=== PATIENT | male | born 1985 | race Caucasian/White ===

== ENCOUNTER 2016-09-15 16:54 | Emergency (ER) | payer OTHER ==
--- NOTE | 2016-09-15 17:39 | REP ---
Clinical: Trauma. Technique: AP, lateral, bilateral oblique and sunrise views of the left knee. Comparison: 03/05/2008. Findings: Marked, advanced, tricompartmental osteoarthritic degenerative changes are appreciated. No acute fracture or dislocation. Soft tissue swelling and small suprapatellar effusion cannot be excluded. Impression: Advanced tricompartmental osteoarthritic degenerative changes. No acute fracture/dislocation. Signed by Nick Kendrick MD 09/15/2016 05:30 P
[2016-09-15] MEDS ORDERED: traMADol 50 MG TAB As Ordered ONE (19:29)
--- NOTE | 2016-09-15 19:37 | EDDOCDS ---
Physician Documentation [facility] Name: Jeffery Weber Age: 30 yrs Sex: Male : 1985 Arrival Date: 09/15/2016 Time: 16:54 Bed TR7 Private MD: NO PRIMARY PHYSICIAN, . Disposition: 09/15/16 19:18 Discharged to Home/Self Care. Impression: Pain in left knee. - Condition is Stable. - Discharge Instructions: Knee Bracing, Knee Pain. - Prescriptions for etodolac 200 mg Oral Capsule - take 1 capsule by ORAL route 3 times per day; 30 capsule. - Medication Reconciliation, Work Release Form - 3 day, Local Pharmacy Hours form. - Follow up: Orthopaedics, [facility]; When: Call to arrange an appointment; Reason: Further diagnostic work-up, Recheck today's complaints, Continuance of care. - Problem is new. - Symptoms are unchanged. Historical: - Allergies: no known allergies; - Home Meds: 1. none - PMHx: none; - PSHx: left arm surgery; left knee surgery X 4; - Social history: Smoking status: Patient uses tobacco products, current every day smoker. No barriers to communication noted, The patient speaks fluent Wallisian, Speaks appropriately for age. - Family history: Not pertinent. - : The pt / caregiver states he / she is not on anticoagulants. Home medication list is obtained from the patient. - Exposure Risk Screening:: None identified. Vital Signs: 09/15 16:57 BP 152 / 96; Pulse 77; Resp 18 S; Temp 97.8(O); Pulse Ox 98% on R/A; Weight 158.76 kg / gr2 350.01 lbs (R); Height 6 ft. 7 in. (200.66 cm) (R); Pain 8/10; 18:47 BP 142 / 82; Pulse 71; Resp 20; Temp 99.5(TE); Pulse Ox 99% on R/A; Pain 10/10; ar3 16:57 Body Mass Index 39.43 (158.76 kg, 200.66 cm) gr2 MDM: 17:06 Knee, Complete Ordered. EDMS 19:14 Financial registration complete. ks16 19:17 Knee Immobilizer ordered. btw 19:17 Crutches ordered. btw 19:17 traMADol 50mg- 4 pack 1 packets PO Per package directions; Dispense with patient. Take btw per package instructions. ordered. Administered Medications: 19:34 Drug: traMADol 50mg- 4 pack 1 packets [tramadol 50 mg tablet (1 tabs)] {Co-Signature: alicja evans (Ezio Kim RN).} Route: PO; Signatures: Dispatcher MedHost EDFaith Monahan RN RN srm Zecher, Calvin, RN RN cz Wolfenden, Brandon, PA PA btw Chantal Reagan, Reg Reg ks16 Ezio carpenter9 MTDD
--- NOTE | 2016-09-15 19:38 | EDDOCDS ---
Nurse's Notes [facility] Name: Jeffery Weber Age: 30 yrs Sex: Male : 1985 Arrival Date: 09/15/2016 Time: 16:54 Bed TR7 Private MD: NO PRIMARY PHYSICIAN, . Diagnosis: Pain in left knee Presentation: 09/15 17:02 Presenting complaint: Patient states: left knee injury after slipping on ice today. hx srm of 4- 5 surgeries to same knee. Adult Sepsis Screening: The patient does not have new or worsening altered mentation. Patient's respiratory rate is less than 22. Systolic blood pressure is greater than 100. Patient has a qSOFA score of 0- Negative Sepsis Screen. Suicide/Homicide risk assessment- the patient denies having any suicidal and/or homicidal ideations and does not present with any other emotional, behavioral or mental health complaints. Status: Patient is not a government services professional or dependent. Transition of care: patient was not received from another setting of care. 17:02 Acuity: ROSE MARY Level 4 srm 17:02 Method Of Arrival: Wheelchair srm Triage Assessment: 17:03 General: Appears uncomfortable, Behavior is appropriate for age, cooperative. Pain: srm Pain currently is 10 out of 10 on a pain scale. HIV screening NA for this visit Offered previously. Musculoskeletal: Reports left knee pain. Historical: - Allergies: no known allergies; - Home Meds: 1. none - PMHx: none; - PSHx: left arm surgery; left knee surgery X 4; - Social history: Smoking status: Patient uses tobacco products, current every day smoker. No barriers to communication noted, The patient speaks fluent Malay, Speaks appropriately for age. - Family history: Not pertinent. - : The pt / caregiver states he / she is not on anticoagulants. Home medication list is obtained from the patient. - Exposure Risk Screening:: None identified. Screenin:35 Screening information is obtained from the patient. Fall risk: No risks identified. cz Assistance ADL's: requires no assistance with activities of daily living. Abuse/DV Screen: The patient / caregiver reports he/she is: not in a situation that causes fear, pain or injury. Nutritional screening: No deficits noted. home support is adequate. Assessment: 19:35 General: pt states aggravation of knee discomfort. cz Vital Signs: 16:57 BP 152 / 96; Pulse 77; Resp 18 S; Temp 97.8(O); Pulse Ox 98% on R/A; Weight 158.76 kg gr2 (R); Height 6 ft. 7 in. (200.66 cm) (R); Pain 8/10; 18:47 BP 142 / 82; Pulse 71; Resp 20; Temp 99.5(TE); Pulse Ox 99% on R/A; Pain 10/10; ar3 16:57 Body Mass Index 39.43 (158.76 kg, 200.66 cm) gr2 Vitals: 16:57 Log In Time: September 15, 2016 at 16:57. gr2 ED Course: 16:56 Patient visited by Reynaldo Bliss. gr2 16:56 Patient moved to Waiting gr2 16:57 NO PRIMARY PHYSICIAN, . is Private Physician. gr2 16:59 Patient visited by Reynaldo Bliss. gr2 16:59 Patient moved to Pre RCE gr2 17:03 Triage Initiated srm 17:41 Knee, Complete Returned. EDMS 18:45 Annie Chester,RN is Primary Nurse. ar3 18:45 Sandy Iglesias,ELSY is Primary Nurse. ar3 18:45 Patient moved to Triage 1 ar3 18:48 Patient visited by Zoraida Larson PCA. ar3 18:57 Isreal Vargas PA is PHCP. btw 18:57 Ibrahima Ying MD is Attending Physician. btw 18:57 Patient visited by Isreal Vargas PA. btw 19:01 Primary Nurse role handed off by Sandy Iglesais,ELSY kr3 19:18 Orthopaedics, [facility] is Referral Physician. btw 19:27 Patient visited by Zoraida Larson PCA. ar3 19:27 Crutch training done. Knee immobilizer applied on left knee. ar3 19:33 Patient moved to TR7 ar3 19:35 The patient / caregiver is instructed regarding the plan of care and ED course. cz 19:35 No IV's were initiated during this patient's visit. No procedures done that require cz assistance. Administered Medications: 19:34 Drug: traMADol 50mg- 4 pack 1 packets [tramadol 50 mg tablet (1 tabs)] {Co-Signature: alicja mb9 (Ezio Kim RN).} Route: PO; Order Results: Radiology Order: Knee, Complete Test: Knee, Complete REASON FOR EXAMINATION: Trauma; Clinical: Trauma.; ; Technique: AP, lateral, bilateral oblique and sunrise views of the left knee.; ; Comparison: 03/05/2008.; ; Findings:; Marked, advanced, tricompartmental osteoarthritic degenerative changes are; appreciated. No acute fracture or dislocation. Soft tissue swelling and small; suprapatellar effusion cannot be excluded.; ; Impression:; Advanced tricompartmental osteoarthritic degenerative changes.; No acute fracture/dislocation.; ; ; Signed by; Nick Kendrick MD 09/15/2016 05:30 P; Outcome: 19:18 Discharge ordered by Provider. btw 19:35 Discharge Assessment: Patient awake, alert and oriented x 3. No cognitive and/or cz functional deficits noted. Patient verbalized understanding of disposition instructions. patient administered narcotics - no. The following High Risk Discharge criteria are identified: None. Condition: stable. Discharge instructions given to patient, Instructed on discharge instructions, follow up and referral plans. medication usage, Demonstrated understanding of instructions, medications, Pt was receptive of discharge instructions/ teaching. Prescriptions given X 1. No special radiology studies were completed. Property :Personal belongings accompany Pt. 19:37 Patient left the ED. cz Signatures: Dispatcher MedHost EDMS Faith Pepe, RN RN Remberto Fernandez RN RN cz Robie, Kathleen, RN RN neisha3 Zoraida Larson, AIR HAMMER OPERATOR AIR HAMMER OPERATOR ar3 Isreal Vargas PA PA btw Reynaldo Bliss gr2 Ezio Kim RN mb9 MTDD
--- NOTE | 2016-09-17 20:37 | EDDOCDS ---
Physician Documentation [facility] Name: Jeffery Weber Age: 30 yrs Sex: Male : 1985 Arrival Date: 09/15/2016 Time: 16:54 Bed TR7 Private MD: NO PRIMARY PHYSICIAN, . Disposition: 09/15/16 19:18 Discharged to Home/Self Care. Impression: Pain in left knee. - Condition is Stable. - Discharge Instructions: Knee Bracing, Knee Pain. - Prescriptions for etodolac 200 mg Oral Capsule - take 1 capsule by ORAL route 3 times per day; 30 capsule. - Medication Reconciliation, Work Release Form - 3 day, Local Pharmacy Hours form. - Follow up: Orthopaedics, [facility]; When: Call to arrange an appointment; Reason: Further diagnostic work-up, Recheck today's complaints, Continuance of care. - Problem is new. - Symptoms are unchanged. Historical: - Allergies: no known allergies; - Home Meds: 1. none - PMHx: none; - PSHx: left arm surgery; left knee surgery X 4; - Social history: Smoking status: Patient uses tobacco products, current every day smoker. No barriers to communication noted, The patient speaks fluent Bengali, Speaks appropriately for age. - Family history: Not pertinent. - : The pt / caregiver states he / she is not on anticoagulants. Home medication list is obtained from the patient. - Exposure Risk Screening:: None identified. Vital Signs: 09/15 16:57 BP 152 / 96; Pulse 77; Resp 18 S; Temp 97.8(O); Pulse Ox 98% on R/A; Weight 158.76 kg / gr2 350.01 lbs (R); Height 6 ft. 7 in. (200.66 cm) (R); Pain 8/10; 18:47 BP 142 / 82; Pulse 71; Resp 20; Temp 99.5(TE); Pulse Ox 99% on R/A; Pain 10/10; ar3 16:57 Body Mass Index 39.43 (158.76 kg, 200.66 cm) gr2 MDM: 17:06 Knee, Complete Ordered. EDMS 19:14 Financial registration complete. ks16 19:17 Knee Immobilizer ordered. btw 19:17 Crutches ordered. btw 19:17 traMADol 50mg- 4 pack 1 packets PO Per package directions; Dispense with patient. Take btw per package instructions. ordered. 20:55 [facility] Payment Agreement was scanned into Venmo and attached to record. 09/16 10:30 T-Sheet-- Draft Copy was scanned into Venmo and attached to record. gb Administered Medications: 09/15 19:34 Drug: traMADol 50mg- 4 pack 1 packets [tramadol 50 mg tablet (1 tabs)] {Co-Signature: alicja evans (Ezio Kim RN).} Route: PO; Signatures: Dispatcher MedHost EDMS Faith Pepe, RN RN srm Remberto Oliva RN RN cz Shazia Lemos, Reg Reg gb Isreal Vargas PA PA btw Chantal Reagan, Reg Reg ks16 Ezio carpenter9 The chart was reviewed and I authenticate all verbal orders and agree with the evaluation and treatment provided.Attachments: 20:55 [facility] Payment Agreement 09/16 10:30 T-Sheet-- Draft Copy gb Chart Complete MTDD
--- NOTE | 2016-09-17 20:37 | EDDOCDS ---
Physician Documentation [facility] Name: Jeffery Weber Age: 30 yrs Sex: Male : 1985 Arrival Date: 09/15/2016 Time: 16:54 Bed TR7 Private MD: NO PRIMARY PHYSICIAN, . Disposition: 09/15/16 19:18 Discharged to Home/Self Care. Impression: Pain in left knee. - Condition is Stable. - Discharge Instructions: Knee Bracing, Knee Pain. - Prescriptions for etodolac 200 mg Oral Capsule - take 1 capsule by ORAL route 3 times per day; 30 capsule. - Medication Reconciliation, Work Release Form - 3 day, Local Pharmacy Hours form. - Follow up: Orthopaedics, [facility]; When: Call to arrange an appointment; Reason: Further diagnostic work-up, Recheck today's complaints, Continuance of care. - Problem is new. - Symptoms are unchanged. Historical: - Allergies: no known allergies; - Home Meds: 1. none - PMHx: none; - PSHx: left arm surgery; left knee surgery X 4; - Social history: Smoking status: Patient uses tobacco products, current every day smoker. No barriers to communication noted, The patient speaks fluent Kazakh, Speaks appropriately for age. - Family history: Not pertinent. - : The pt / caregiver states he / she is not on anticoagulants. Home medication list is obtained from the patient. - Exposure Risk Screening:: None identified. Vital Signs: 09/15 16:57 BP 152 / 96; Pulse 77; Resp 18 S; Temp 97.8(O); Pulse Ox 98% on R/A; Weight 158.76 kg / gr2 350.01 lbs (R); Height 6 ft. 7 in. (200.66 cm) (R); Pain 8/10; 18:47 BP 142 / 82; Pulse 71; Resp 20; Temp 99.5(TE); Pulse Ox 99% on R/A; Pain 10/10; ar3 16:57 Body Mass Index 39.43 (158.76 kg, 200.66 cm) gr2 MDM: 17:06 Knee, Complete Ordered. EDMS 19:14 Financial registration complete. ks16 19:17 Knee Immobilizer ordered. btw 19:17 Crutches ordered. btw 19:17 traMADol 50mg- 4 pack 1 packets PO Per package directions; Dispense with patient. Take btw per package instructions. ordered. 20:55 [facility] Payment Agreement was scanned into f4samurai and attached to record. 09/16 10:30 T-Sheet-- Draft Copy was scanned into f[employer]samurai and attached to record. gb Administered Medications: 09/15 19:34 Drug: traMADol 50mg- 4 pack 1 packets [tramadol 50 mg tablet (1 tabs)] {Co-Signature: alicja evans (Ezio Kim RN).} Route: PO; Signatures: Dispatcher MedHost EDMS Faith Pepe, RN RN srm Remberto Oliva RN RN cz Shazia Lemos, Reg Reg gb Isreal Vargas PA PA btw Chantal Reagan, Reg Reg ks16 Ezio carpenter9 The chart was reviewed and I authenticate all verbal orders and agree with the evaluation and treatment provided.Attachments: 20:55 [facility] Payment Agreement 09/16 10:30 T-Sheet-- Draft Copy gb Chart Complete MTDD
--- NOTE | 2016-09-17 20:38 | EDDOCDS ---
Nurse's Notes [facility] Name: Jeffery Weber Age: 30 yrs Sex: Male : 1985 Arrival Date: 09/15/2016 Time: 16:54 Bed TR7 Private MD: NO PRIMARY PHYSICIAN, . Diagnosis: Pain in left knee Presentation: 09/15 17:02 Presenting complaint: Patient states: left knee injury after slipping on ice today. hx srm of 4- 5 surgeries to same knee. Adult Sepsis Screening: The patient does not have new or worsening altered mentation. Patient's respiratory rate is less than 22. Systolic blood pressure is greater than 100. Patient has a qSOFA score of 0- Negative Sepsis Screen. Suicide/Homicide risk assessment- the patient denies having any suicidal and/or homicidal ideations and does not present with any other emotional, behavioral or mental health complaints. Status: Patient is not a legal services professional or dependent. Transition of care: patient was not received from another setting of care. 17:02 Acuity: ROSE MARY Level 4 srm 17:02 Method Of Arrival: Wheelchair srm Triage Assessment: 17:03 General: Appears uncomfortable, Behavior is appropriate for age, cooperative. Pain: srm Pain currently is 10 out of 10 on a pain scale. HIV screening NA for this visit Offered previously. Musculoskeletal: Reports left knee pain. Historical: - Allergies: no known allergies; - Home Meds: 1. none - PMHx: none; - PSHx: left arm surgery; left knee surgery X 4; - Social history: Smoking status: Patient uses tobacco products, current every day smoker. No barriers to communication noted, The patient speaks fluent Serbian, Speaks appropriately for age. - Family history: Not pertinent. - : The pt / caregiver states he / she is not on anticoagulants. Home medication list is obtained from the patient. - Exposure Risk Screening:: None identified. Screenin:35 Screening information is obtained from the patient. Fall risk: No risks identified. cz Assistance ADL's: requires no assistance with activities of daily living. Abuse/DV Screen: The patient / caregiver reports he/she is: not in a situation that causes fear, pain or injury. Nutritional screening: No deficits noted. home support is adequate. Assessment: 19:35 General: pt states aggravation of knee discomfort. cz Vital Signs: 16:57 BP 152 / 96; Pulse 77; Resp 18 S; Temp 97.8(O); Pulse Ox 98% on R/A; Weight 158.76 kg gr2 (R); Height 6 ft. 7 in. (200.66 cm) (R); Pain 8/10; 18:47 BP 142 / 82; Pulse 71; Resp 20; Temp 99.5(TE); Pulse Ox 99% on R/A; Pain 10/10; ar3 16:57 Body Mass Index 39.43 (158.76 kg, 200.66 cm) gr2 Vitals: 16:57 Log In Time: September 15, 2016 at 16:57. gr2 ED Course: 16:56 Patient visited by Reynaldo Bliss. gr2 16:56 Patient moved to Waiting gr2 16:57 NO PRIMARY PHYSICIAN, . is Private Physician. gr2 16:59 Patient visited by Reynaldo Bliss. gr2 16:59 Patient moved to Pre RCE gr2 17:03 Triage Initiated srm 17:41 Knee, Complete Returned. EDMS 18:45 Annie Chester,RN is Primary Nurse. ar3 18:45 Sandy Iglesias,ELSY is Primary Nurse. ar3 18:45 Patient moved to Triage 1 ar3 18:48 Patient visited by Zoraida Larson PCA. ar3 18:57 Isreal Vargas PA is PHCP. btw 18:57 Ibrahima Ying MD is Attending Physician. btw 18:57 Patient visited by Isreal Vargas PA. btw 19:01 Primary Nurse role handed off by Sandy Iglesias,RN kr3 [facility]. btw 19:27 Patient visited by Zoraida Larson PCA. ar3 19:27 Crutch training done. Knee immobilizer applied on left knee. ar3 19:33 Patient moved to TR7 ar3 19:35 The patient / caregiver is instructed regarding the plan of care and ED course. cz 19:35 No IV's were initiated during this patient's visit. No procedures done that require cz assistance. 20:55 [facility] [place] Agreement was scanned into Xenome and attached to record. ks16 09/16 10:30 T-Sheet-- Draft Copy was scanned into Xenome and attached to record. gb Administered Medications: 09/15 19:34 Drug: traMADol 50mg- 4 pack 1 packets [tramadol 50 mg tablet (1 tabs)] {Co-Signature: alicja evans (Ezio Kim RN).} Route: PO; Order Results: Radiology Order: Knee, Complete Test: Knee, Complete REASON FOR EXAMINATION: Trauma; Clinical: Trauma.; ; Technique: AP, lateral, bilateral oblique and sunrise views of the left knee.; ; Comparison: 03/05/2008.; ; Findings:; Marked, advanced, tricompartmental osteoarthritic degenerative changes are; appreciated. No acute fracture or dislocation. Soft tissue swelling and small; suprapatellar effusion cannot be excluded.; ; Impression:; Advanced tricompartmental osteoarthritic degenerative changes.; No acute fracture/dislocation.; ; ; Signed by; Nick Kendrick MD 09/15/2016 05:30 P; Outcome: 19:18 Discharge ordered by Provider. btw 19:35 Discharge Assessment: Patient awake, alert and oriented x 3. No cognitive and/or cz functional deficits noted. Patient verbalized understanding of disposition instructions. patient administered narcotics - no. The following High Risk Discharge criteria are identified: None. Condition: stable. Discharge instructions given to patient, Instructed on discharge instructions, follow up and referral plans. medication usage, Demonstrated understanding of instructions, medications, Pt was receptive of discharge instructions/ teaching. Prescriptions given X 1. No special radiology studies were completed. Property :Personal belongings accompany Pt. 19:37 Patient left the ED. cz Signatures: Dispatcher MedHost EDMS Faith Pepe RN RN srm Zecher, Calvin, RN RN cz Barnhardt, Gloria, Reg Reg gb Sandy Iglesias RN RN kr3 Zoraida Larson, JUNIOR STAFF ACCOUNTANT JUNIOR STAFF ACCOUNTANT ar3 Isreal Vargas PA PA btw Reynaldo Bliss gr2 Chantal Reagan, Reg Reg ks16 Ezio carpenter9 Chart Complete MTDD
== END 2016-09-15 19:37 | disposition home or self-care (01) ==
LOC: M ED 16:54
DX: S83.412A Sprain of medial collateral ligament of left knee, initial encounter (principal); W00.2XXA Other fall from one level to another due to ice and snow, initial encounter; Y92.098 Other place in other non-institutional residence as the place of occurrence of the external cause; Y93.89 Activity, other specified; Y99.8 Other external cause status; F17.210 Nicotine dependence, cigarettes, uncomplicated

== ENCOUNTER → 2016-09-26 | Outpatient (CLI) | payer OTHER ==
--- NOTE | 2016-09-28 10:58 | REP ---
MRI left knee without contrast: History: Left knee pain. History of numerous knee surgeries. Injury in a fall on ice 2 weeks ago. Comparison knee radiographs September 15, 2016. Comparison left knee MRI study October 29, 2015. Technique: Axial, coronal and sagittal imaging planes utilized for T1, proton density and T2-weighted scans obtained in the usual fashion with and without fat saturation. MRI findings: There is severe three compartment osteoarthritis again noted. Micrometallic susceptibility artifact is seen in the soft tissues adjacent to the anterior and medial aspect of the patella as before. Multiple loose bodies are noted at the posterior joint line. A moderate sized joint effusion is seen. There is patella plica formation. The patella is laterally situated relative to the intercondylar notch as seen radiographically and on prior MR imaging. Patellar and quadriceps tendons appear intact. The posterior cruciate ligament has an intact appearance. The anterior cruciate ligament is extremely attenuated and not well seen. I suspect a partial chronic tear. This appearance is unchanged. An area of suspected avascular necrosis is again visible in the posterior aspect of the lateral femoral condyle. There is severe articular cartilage loss in the lateral compartment of the knee with moderate to severe chondromalacia in the medial compartment. Large extensive osteophytes are formed. There is no visible medial or lateral collateral ligament disruption. There is a degenerative tear of the body anterior horn portions of the lateral meniscus. No definite medial meniscal tear is seen. Moderate to severe chondromalacia patella is seen. Chondromalacia is noted in the femoral trochlear articular cartilage as well. No acute fracture is seen. A fairly large joint effusion is seen. There is a tiny slit-like Hsu's cyst. Impression: No acute fracture. Severe three compartment osteoarthritis. Multiple large loose bodies posteriorly. Advanced articular cartilage destruction in the lateral compartment. Postoperative change. Moderate to large joint effusion. Area of avascular necrosis suspected in the lateral femoral condyle. Degenerative tear lateral meniscus. Advanced chondromalacia changes medially and in the patellofemoral compartment. Tiny Hsu's cyst. Signed by Yamil Rojas MD 09/28/2016 03:34 P
== END ==
LOC: M RAD 13:28
PROVIDERS: ATTEND Orthopaedic Surgery
DX: M25.562 Pain in left knee (principal)

== ENCOUNTER 2017-12-26 17:51 | Emergency (ER) | payer OTHER ==
[2017-12-26] MEDS: ONDANSETRON 4MG/2ML VIAL (J2405) IV (19:20)
[2017-12-26] MEDS: MORPHINE 10 MG/ML 1ML VIAL (J2270) IV (19:21)
[2017-12-26] MEDS: NS 1,000 ML IV (19:21)
[2017-12-26 19:23] LABS: BASO % 0.2 % (0.0-1.0); EOS # 0.1 10^3/uL (0.0-0.50); EOS % 0.6 % (0.0-3.0); HEMATOCRIT 47.6 % (42.0-52.0); HEMOGLOBIN 16.3 g/dl (13.5-17.5); IMMATURE GRANULOCYTE % 0.5 % (0-3.0); LYMPH # 1.3 10^3/uL (1.5-4.5); LYMPH % 7.8 % (24.0-44.0); MEAN CORPUSCULAR HEMOGLOBIN 30.5 pg (27.0-33.0); MEAN CORPUSCULAR HGB CONC 34.2 g/dl (32.0-36.5); MEAN CORPUSCULAR VOLUME 89.1 fl (80.0-96.0); MONO # 0.9 10^3/uL (0.0-0.8); NEUTROPHILS # 14.8 10^3/uL (1.8-7.7); NEUTROPHILS % 85.9 % (36.0-66.0); PLATELET COUNT, AUTOMATED 195 10^3/uL (150-450); RED BLOOD COUNT 5.34 10^6/uL (4.30-6.10); RED CELL DISTRIBUTION WIDTH 13.5 % (11.5-14.5); WHITE BLOOD COUNT 17.3 10^3/uL (4.0-10.0)
[2017-12-26 19:43] LABS: ALBUMIN 3.9 GM/DL (3.2-5.2); ALBUMIN/GLOBULIN RATIO 1.26 (1.00-1.93); ALKALINE PHOSPHATASE 68 U/L (45-117); ALT/SGPT 44 U/L (12-78); ANION GAP 8 MEQ/L (8-16); AST/SGOT 16 U/L (7-37); BILIRUBIN,DIRECT 0.1 MG/DL (0.0-0.2); BILIRUBIN,TOTAL 0.5 MG/DL (0.2-1.0); BLOOD UREA NITROGEN 9 MG/DL (7-18); CALCIUM LEVEL 8.7 MG/DL (8.5-10.1); CARBON DIOXIDE LEVEL 24 MEQ/L (21-32); CHLORIDE LEVEL 110 MEQ/L (98-107); CREATININE FOR GFR 0.82 MG/DL (0.70-1.30); GLOMERULAR FILTRATION RATE > 60.0 (>60); GLUCOSE, FASTING 103 MG/DL (70-100); LIPASE 340 U/L (73-393); POTASSIUM SERUM 3.7 MEQ/L (3.5-5.1); SODIUM LEVEL 142 MEQ/L (136-145)
[2017-12-26] MEDS ORDERED: ISOVUE-370 76% 100ML VIAL (Q9967) As Ordered (19:43)
[2017-12-26] MEDS: PERCOCET 5MG/325MG TAB PO ×2 (21:11→23:53)
== END 2017-12-26 23:55 | disposition home or self-care (01) ==
LOC: M ED 17:51
DX: R03.0 Elevated blood-pressure reading, without diagnosis of hypertension (principal); K52.9 Noninfective gastroenteritis and colitis, unspecified; R10.9 Unspecified abdominal pain; F17.200 Nicotine dependence, unspecified, uncomplicated; Z83.79 Family history of other diseases of the digestive system
CPT/HCPCS: J2405

== ENCOUNTER 2017-12-29 10:10 | Emergency (ER) | payer OTHER ==
[2017-12-29] MEDS: METOCLOPRAMIDE INJ 10MG/2ML VIAL (J2765) IV (11:08)
[2017-12-29] MEDS: NS 1,000 ML IV (11:08)
[2017-12-29] MEDS: DICYCLOMINE INJ 20MG/2ML (J0500) IM (11:10)
[2017-12-29 11:20] LABS: BASO % 0.3 % (0.0-1.0); EOS # 0.1 10^3/uL (0.0-0.50); EOS % 0.6 % (0.0-3.0); HEMATOCRIT 48.4 % (42.0-52.0); HEMOGLOBIN 16.6 g/dl (13.5-17.5); IMMATURE GRANULOCYTE % 0.4 % (0-3.0); LYMPH # 1.6 10^3/uL (1.5-4.5); LYMPH % 13.6 % (24.0-44.0); MEAN CORPUSCULAR HEMOGLOBIN 30.4 pg (27.0-33.0); MEAN CORPUSCULAR HGB CONC 34.3 g/dl (32.0-36.5); MEAN CORPUSCULAR VOLUME 88.6 fl (80.0-96.0); MONO # 0.6 10^3/uL (0.0-0.8); MONO % 5.2 % (0.0-5.0); NEUTROPHILS # 9.6 10^3/uL (1.8-7.7); NEUTROPHILS % 79.9 % (36.0-66.0); PLATELET COUNT, AUTOMATED 221 10^3/uL (150-450); RED BLOOD COUNT 5.46 10^6/uL (4.30-6.10); RED CELL DISTRIBUTION WIDTH 13.4 % (11.5-14.5)
[2017-12-29 11:38] LABS: ALBUMIN 3.9 GM/DL (3.2-5.2); ALBUMIN/GLOBULIN RATIO 1.15 (1.00-1.93); ALKALINE PHOSPHATASE 65 U/L (45-117); ALT/SGPT 81 U/L (12-78); AMYLASE 52 U/L (25-115); ANION GAP 6 MEQ/L (8-16); AST/SGOT 36 U/L (7-37); BILIRUBIN,DIRECT 0.1 MG/DL (0.0-0.2); BILIRUBIN,TOTAL 0.4 MG/DL (0.2-1.0); BLOOD UREA NITROGEN 10 MG/DL (7-18); CARBON DIOXIDE LEVEL 26 MEQ/L (21-32); CHLORIDE LEVEL 110 MEQ/L (98-107); CREATININE FOR GFR 0.79 MG/DL (0.70-1.30); GLOMERULAR FILTRATION RATE > 60.0 (>60); GLUCOSE, FASTING 113 MG/DL (70-100); LIPASE 206 U/L (73-393); POTASSIUM SERUM 4.1 MEQ/L (3.5-5.1); SODIUM LEVEL 142 MEQ/L (136-145); TOTAL PROTEIN 7.3 GM/DL (6.4-8.2)
== END 2017-12-29 14:30 | disposition home or self-care (01) ==
LOC: M ED 10:10
DX: K52.9 Noninfective gastroenteritis and colitis, unspecified (principal); R11.2 Nausea with vomiting, unspecified; R19.7 Diarrhea, unspecified; R14.3 Flatulence; K76.0 Fatty (change of) liver, not elsewhere classified; Z72.0 Tobacco use
CPT/HCPCS: J0500

== ENCOUNTER → 2018-04-15 | Outpatient (REF) | payer OTHER, MEDICAID ==
[2018-04-15 14:13] LABS: ALBUMIN 3.9 GM/DL (3.2-5.2); ALBUMIN/GLOBULIN RATIO 1.34 (1.00-1.93); ALKALINE PHOSPHATASE 76 U/L (45-117); ALT/SGPT 55 U/L (12-78); ANION GAP 7 MEQ/L (8-16); AST/SGOT 19 U/L (7-37); BILIRUBIN,TOTAL 0.2 MG/DL (0.2-1.0); BLOOD UREA NITROGEN 12 MG/DL (7-18); CALCIUM LEVEL 9.1 MG/DL (8.5-10.1); CARBON DIOXIDE LEVEL 25 MEQ/L (21-32); CHLORIDE LEVEL 108 MEQ/L (98-107); CHOLESTEROL LEVEL 146 MG/DL (<200); CHOLESTEROL RISK RATIO 4.709 (<5); CREATININE FOR GFR 0.81 MG/DL (0.70-1.30); GLOMERULAR FILTRATION RATE > 60.0 (>60); GLUCOSE, FASTING 120 MG/DL (70-100); HDL CHOLESTEROL 31 MG/DL (>40); LDL CHOLESTEROL 83 MG/DL (<100); NON-HDL-C 115 MG/DL; POTASSIUM SERUM 4.5 MEQ/L (3.5-5.1); SODIUM LEVEL 140 MEQ/L (136-145); TOTAL PROTEIN 6.8 GM/DL (6.4-8.2); TRIGLYCERIDES LEVEL 161 MG/DL (<150)
[2018-04-15 14:21] LABS: ESTIMATED AVERAGE GLUCOSE 103 MG/DL (60-110); HEMOGLOBIN A1c 5.2 %
== END ==
LOC: M LAB REF 13:19
DX: Z00.01 Encounter for general adult medical examination with abnormal findings (principal)

== ENCOUNTER 2018-05-04 10:26 | Emergency (ER) | payer OTHER, MEDICAID | END 2018-05-04 11:37 | disposition home or self-care (01) | LOC: M ED 10:26 | DX: S63.501A Unspecified sprain of right wrist, initial encounter (principal); X50.9XXA Other and unspecified overexertion or strenuous movements or postures, initial encounter; Y92.89 Other specified places as the place of occurrence of the external cause; Y99.0 Civilian activity done for income or pay; F17.210 Nicotine dependence, cigarettes, uncomplicated | CPT/HCPCS: 73110 ==

== ENCOUNTER 2018-11-11 15:43 | Emergency (ER) | payer MEDICAID, OTHER ==
[~2018-11-11] VITALS: Ht 198.1 cm; Wt 154.6 kg
[~2018-11-11 15:43] MED LIST: CYCL10TA PO; MELO15TA28 PO; PERC5TAB12 PO; ZOFR8TAB22 PO
[2018-11-11] MEDS ORDERED: ACET-683 PO (15:48)
[2018-11-11] MEDS: PERCOCET 5MG/325MG TAB PO ONE (16:20)
--- NOTE | 2018-11-11 16:42 | REP ---
Right great toe four views: There is a comminuted intra-articular fracture of the distal phalange. There is no dislocation. Mineralization is normal. There are no calcifications or foreign bodies. Electronically Signed by Kimo Schultz MD 11/11/2018 04:33 P
[2018-11-11 17:18] VITALS: BP 141/85
[2018-11-11] MEDS ORDERED: PERC5TAB12 PO (17:23)
== END 2018-11-11 17:33 | disposition home or self-care (01) ==
LOC: M ED 15:43
DX: S92.421A Displaced fracture of distal phalanx of right great toe, initial encounter for closed fracture (principal); S90.211A Contusion of right great toe with damage to nail, initial encounter; W22.8XXA Striking against or struck by other objects, initial encounter; Y92.89 Other specified places as the place of occurrence of the external cause; Y99.0 Civilian activity done for income or pay; F17.210 Nicotine dependence, cigarettes, uncomplicated

== ENCOUNTER 2018-12-14 05:53 | Emergency (ER) | payer OTHER ==
[~2018-12-14] VITALS: Ht 198.1 cm; Wt 154.6 kg
[~2018-12-14 05:53] MED LIST changes: +ACET-683 PO
[2018-12-14] MEDS ORDERED: ONDANSETRON 4MG/2ML VIAL (J2405) IV ONE (06:30)
[2018-12-14] MEDS ORDERED: NS 1,000 ML IV ONE (06:30)
[2018-12-14] MEDS ORDERED: KETOROLAC 30 MG/ML VIAL (J1885) IV ONE (06:30)
[2018-12-14 06:59] LABS: BASO % 0.2 % (0.0-1.0); EOS # 0.1 10^3/uL (0.0-0.50); EOS % 1.2 % (0.0-3.0); HEMATOCRIT 46.7 % (42.0-52.0); HEMOGLOBIN 15.3 g/dl (13.5-17.5); LYMPH # 1.4 10^3/uL (1.5-4.5); LYMPH % 12.7 % (24.0-44.0); MEAN CORPUSCULAR HEMOGLOBIN 29.7 pg (27.0-33.0); MEAN CORPUSCULAR HGB CONC 32.8 g/dl (32.0-36.5); MEAN CORPUSCULAR VOLUME 90.5 fl (80.0-96.0); MONO # 0.6 10^3/uL (0.0-0.8); MONO % 5.8 % (0.0-5.0); NEUTROPHILS # 8.5 10^3/uL (1.8-7.7); NEUTROPHILS % 79.8 % (36.0-66.0); PLATELET COUNT, AUTOMATED 202 10^3/uL (150-450); RED BLOOD COUNT 5.16 10^6/uL (4.30-6.10); WHITE BLOOD COUNT 10.7 10^3/uL (4.0-10.0)
[2018-12-14 07:15] LABS: ALBUMIN 3.4 GM/DL (3.2-5.2); ALT/SGPT 35 U/L (12-78); AMYLASE 55 U/L (25-115); BILIRUBIN,DIRECT < 0.1 MG/DL (0.0-0.2); BILIRUBIN,TOTAL 0.4 MG/DL (0.2-1.0); BLOOD UREA NITROGEN 9 MG/DL (7-18); CALCIUM LEVEL 8.8 MG/DL (8.5-10.1); CARBON DIOXIDE LEVEL 26 MEQ/L (21-32); CHLORIDE LEVEL 109 MEQ/L (98-107); CREATININE FOR GFR 0.75 MG/DL (0.70-1.30); GLOMERULAR FILTRATION RATE > 60.0 (>60); GLUCOSE, FASTING 115 MG/DL (70-100); LIPASE 237 U/L (73-393); POTASSIUM SERUM 4.2 MEQ/L (3.5-5.1); SODIUM LEVEL 142 MEQ/L (136-145); TOTAL PROTEIN 6.8 GM/DL (6.4-8.2)
[2018-12-14] MEDS ORDERED: MORPHINE 4 MG/ML 1ML VIAL/SYRINGE (J2270) IV ONE (08:00)
[2018-12-14] MEDS ORDERED: ISOVUE-370 76% 100ML VIAL (Q9967) As Ordered ONE (08:08)
[2018-12-14 09:39] VITALS: BP 118/65
--- NOTE | 2018-12-14 14:16 | REP ---
CT abdomen and pelvis with IV but without oral contrast: History: Abdominal pain, nausea, vomiting, diarrhea. Comparison CT study is from December 26, 2017. CT contrast dose: 100 mL of intravenous Isovue 370. CT findings: Preliminary digital pumper head radiograph is noncontributory. The lung bases are clear on axial CT images. The liver shows mild diffuse fatty infiltration. No focal liver lesion is seen. Spleen is unremarkable. No adrenal lesion is seen. Pancreas is normal. Gallbladder shows no abnormality. The kidneys enhance symmetrically and are morphologically intact. There is no evidence of free air in the abdomen. There are dystrophic calcifications in a normal-sized prostate. Urinary bladder and seminal vesicles are unremarkable. There is a small quantity of ascitic fluid in the pelvis. This is similar to fluid seen here on December 26, 2017. Today's study again demonstrates moderate mural thickening in the distal small bowel. There are a few normal-sized mesenteric lymph nodes and there is some fat hypertrophy adjacent to the involved loops. The findings are suggestive of Crohn's enteropathy or other inflammatory bowel disease. The proximal small intestine is not dilated. A normal appendix is seen. The mural thickening extends though the terminal ileal to the ileocecal valve. Impression: Findings consistent with Crohn's disease or other inflammatory bowel disease involving the distal ileum with moderate mural thickening. There is a small quantity of ascitic fluid in the pelvis. Normal appendix. No other acute abnormality. The pattern is similar to that seen December 26, 2017. Electronically Signed by Yamil Rojas MD 12/14/2018 04:30 P
== END 2018-12-14 09:41 | disposition home or self-care (01) ==
LOC: M ED 05:53
DX: K50.919 Crohn's disease, unspecified, with unspecified complications (principal)
CPT/HCPCS: 74177; 80048; 80076; 81001; 82150; 83690; 85025; 96374; 96375; 99284; J1885; J2270; J2405; Q9967

== ENCOUNTER 2019-01-10 21:20 | Emergency (ER) | payer OTHER ==
[~2019-01-10] VITALS: Ht 198.1 cm; Wt 150.0 kg
--- NOTE | 2019-01-11 00:27 | REPVR ---
EXAM: XR Right Knee EXAM DATE/TIME: 01/10/2019 9:45 PM CLINICAL HISTORY: 33 years old, male; Pain; Knee; Right; Additional info: Popped/pain TECHNIQUE: Imaging protocol: XR Right knee. Views: 4 or more views. COMPARISON: CR Knee, complete 09/15/2016 5:21 PM FINDINGS: Bones/joints: Severe degenerative changes involving all 3 compartments of the knee. Joint effusion. Soft tissues: Normal. IMPRESSION: Severe degenerative changes. Electronically signed by: Jose Francisco Olvera On 01/11/2019 00:27:03 AM
[2019-01-11] MEDS ORDERED: KETOROLAC 30 MG/ML VIAL (J1885) IM ONE (01:15)
[2019-01-11 01:21] VITALS: BP 149/84
[2019-01-11] MEDS ORDERED: NORCO 5/325MG TABLET (BULK FOR ED) PO ONE (01:30)
== END 2019-01-11 01:40 | disposition home or self-care (01) ==
LOC: M ED 21:20
DX: M25.561 Pain in right knee (principal); G89.29 Other chronic pain; M25.571 Pain in right ankle and joints of right foot; M17.11 Unilateral primary osteoarthritis, right knee
CPT/HCPCS: 73564; 96372; 99284; J1885

== ENCOUNTER 2019-03-11 18:37 | Emergency (ER) | payer OTHER, SELFPAY ==
[~2019-03-11] VITALS: Ht 198.1 cm; Wt 127.3 kg
[2019-03-11] MEDS ORDERED: IBUPROFEN 600 MG TAB PO ONE (19:30)
--- NOTE | 2019-03-11 20:20 | REPVR ---
EXAM: US Duplex Left Upper Extremity Veins, Limited EXAM DATE/TIME: 03/11/2019 8:11 PM CLINICAL HISTORY: 33 years old, male; Edema, localized; Upper extremity, left; Additional info: Idiopathic swelling L forearm TECHNIQUE: Imaging protocol: Real-time Duplex ultrasound of the Left Upper Extremity with 2-D samayoa scale, color Doppler flow and spectral waveform analysis with image documentation. Limited exam focused on the left upper extremity veins. COMPARISON: No relevant prior studies available. FINDINGS: Left deep veins: Unremarkable. Axillary and brachial veins are patent throughout without thrombus. Normal Doppler waveforms. Normal compressibility and/or augmentation response. Visualized internal jugular and subclavian veins are patent. Left superficial veins: Unremarkable. Visualized cephalic and basilic veins are patent without thrombus. Soft tissues: Soft tissue edema in the area of clinical concern in the distal left forearm. Otherwise unremarkable. IMPRESSION: Subcutaneous edema distal left forearm. No abscess demonstrated. Clinical correlation to exclude cellulitis suggested. No evidence of deep vein thrombosis. Electronically signed by: Pedro Colin On 03/11/2019 20:20:22 PM
[2019-03-11] MEDS ORDERED: IBUP-1022 PO (20:46)
[2019-03-11 20:52] VITALS: BP 111/53
== END 2019-03-11 20:55 | disposition home or self-care (01) ==
LOC: M ED 18:37
DX: M65.4 Radial styloid tenosynovitis [de Quervain] (principal); F17.210 Nicotine dependence, cigarettes, uncomplicated

== ENCOUNTER → 2019-04-19 | Outpatient (REF) | payer SELFPAY ==
[~2019-04-19] MED LIST changes: +IBUP-1022 PO
[2019-04-19 11:06] LABS: BASO % 0.5 % (0.0-1.0); EOS # 0.2 10^3/uL (0.0-0.5); EOS % 2.1 % (0.0-3.0); HEMATOCRIT 44.2 % (42.0-52.0); HEMOGLOBIN 14.6 g/dl (13.5-17.5); LYMPH # 1.8 10^3/uL (1.5-5.0); LYMPH % 23.2 % (24.0-44.0); MEAN CORPUSCULAR HEMOGLOBIN 30.6 pg (27.0-33.0); MEAN CORPUSCULAR VOLUME 92.7 fl (80.0-96.0); MONO # 0.7 10^3/uL (0.0-0.8); MONO % 9.1 % (0.0-5.0); NEUTROPHILS # 4.9 10^3/uL (1.5-8.5); NEUTROPHILS % 64.6 % (36.0-66.0); PLATELET COUNT, AUTOMATED 205 10^3/uL (150-450); RED BLOOD COUNT 4.77 10^6/uL (4.30-6.10); WHITE BLOOD COUNT 7.7 10^3/uL (4.0-10.0)
[2019-04-19 11:19] LABS: ALBUMIN 3.6 GM/DL (3.2-5.2); ALT/SGPT 26 U/L (12-78); BILIRUBIN,TOTAL 0.4 MG/DL (0.2-1.0); BLOOD UREA NITROGEN 10 MG/DL (7-18); CARBON DIOXIDE LEVEL 29 MEQ/L (21-32); CHLORIDE LEVEL 108 MEQ/L (98-107); CHOLESTEROL LEVEL 128 MG/DL (<200); CHOLESTEROL RISK RATIO 3.657 (<5); CREATININE FOR GFR 0.74 MG/DL (0.70-1.30); FREE T4 1.04 NG/DL (0.76-1.46); GLOMERULAR FILTRATION RATE > 60.0 (>60); GLUCOSE, FASTING 96 MG/DL (70-100); HDL CHOLESTEROL 35 MG/DL (>40); LDL CHOLESTEROL 76 MG/DL (<100); NON-HDL-C 93 MG/DL; POTASSIUM SERUM 4.5 MEQ/L (3.5-5.1); SODIUM LEVEL 141 MEQ/L (136-145); TOTAL PROTEIN 6.4 GM/DL (6.4-8.2); TRIGLYCERIDES LEVEL 86 MG/DL (<150)
[2019-04-19 11:31] LABS: HEMOGLOBIN A1c 5.3 %
== END ==
LOC: M LAB REF 10:49
PROVIDERS: ATTEND Nurse Practitioner Family
DX: Z13.9 Encounter for screening, unspecified (principal)

== ENCOUNTER → 2019-09-11 | Outpatient (REF) | payer OTHER ==
[2019-09-11 11:50] LABS: BASO # 0.1 10^3/uL (0.0-0.2); BASO % 0.6 % (0.0-1.0); EOS # 0.2 10^3/uL (0.0-0.5); EOS % 2.3 % (0.0-3.0); HEMATOCRIT 47.3 % (42.0-52.0); HEMOGLOBIN 14.8 g/dl (13.5-17.5); LYMPH % 25.4 % (24.0-44.0); MEAN CORPUSCULAR HGB CONC 31.3 g/dl (32.0-36.5); MEAN CORPUSCULAR VOLUME 92.7 fl (80.0-96.0); MONO # 0.8 10^3/uL (0.0-0.8); MONO % 10.3 % (0.0-5.0); NEUTROPHILS # 4.7 10^3/uL (1.5-8.5); NEUTROPHILS % 60.8 % (36.0-66.0); PLATELET COUNT, AUTOMATED 193 10^3/uL (150-450); WHITE BLOOD COUNT 7.7 10^3/uL (4.0-10.0)
[2019-09-11 11:57] LABS: ALBUMIN 3.9 GM/DL (3.2-5.2); ALT/SGPT 47 U/L (12-78); BILIRUBIN,TOTAL 0.3 MG/DL (0.2-1.0); BLOOD UREA NITROGEN 16 MG/DL (7-18); CALCIUM LEVEL 9.2 MG/DL (8.5-10.1); CARBON DIOXIDE LEVEL 29 MEQ/L (21-32); CHLORIDE LEVEL 107 MEQ/L (98-107); CHOLESTEROL LEVEL 159 MG/DL (<200); CHOLESTEROL RISK RATIO 3.785 (<5); CREATININE FOR GFR 0.73 MG/DL (0.70-1.30); GLOMERULAR FILTRATION RATE > 60.0 (>60); GLUCOSE, FASTING 94 MG/DL (70-100); HDL CHOLESTEROL 42 MG/DL (>40); LDL CHOLESTEROL 103 MG/DL (<100); NON-HDL-C 117 MG/DL; POTASSIUM SERUM 4.4 MEQ/L (3.5-5.1); SODIUM LEVEL 141 MEQ/L (136-145); TOTAL PROTEIN 7.1 GM/DL (6.4-8.2); TRIGLYCERIDES LEVEL 72 MG/DL (<150)
[2019-09-11 12:16] LABS: FOLATE 17.1 NG/ML; VITAMIN B12 LEVEL 457 PG/ML
== END ==
LOC: M LAB REF 10:51
PROVIDERS: ATTEND Nurse Practitioner Family
DX: Z13.9 Encounter for screening, unspecified (principal); F32.9 Major depressive disorder, single episode, unspecified; I10 Essential (primary) hypertension; F17.200 Nicotine dependence, unspecified, uncomplicated

== ENCOUNTER → 2019-10-09 | Outpatient (CLI) | payer OTHER ==
--- NOTE | 2019-10-10 02:47 | REP ---
Clinical: Contusion. Technique: AP, lateral, coned-down views of the lumbosacral spine. Findings: Moderate multilevel degenerative changes include endplate sclerosis, disc space narrowing, and osteophytosis along with hypertrophic facet changes. Disc space narrowing most notable at L5-S1. No acute fracture / compression injury or subluxation identified. Impression: Moderate multilevel degenerative spondylosis. No acute fracture / compression injury or subluxation identified. Electronically Signed by Nick Kendrick MD 10/10/2019 02:38 A
== END ==
LOC: M ADAMS 16:15
PROVIDERS: ATTEND Physician Assistant
DX: M47.816 Spondylosis without myelopathy or radiculopathy, lumbar region (principal)

== ENCOUNTER → 2019-10-12 | Outpatient (CLI) | payer OTHER ==
[2019-10-12 13:52] LABS: CREATININE FOR GFR 0.83 MG/DL (0.70-1.30); GLOMERULAR FILTRATION RATE > 60.0 (>60); RHEUMATOID FACTOR QUANT < 10.0 IU/ML (<15.0)
[2019-10-18 00:06] LABS: ANTINUCLEAR ANTIBODIES DIRECT Negative (Negative); HLA-B27 Negative (.)
== END ==
LOC: M LABDRWAD 09:46
PROVIDERS: ATTEND Physician Assistant
DX: M47.896 Other spondylosis, lumbar region (principal)

== ENCOUNTER → 2020-03-12 | Outpatient (REF) | payer OTHER, MEDICAID ==
[~2020-03-12] MED LIST changes: +CYCL-707 PO; -CYCL10TA PO
[2020-04-14 10:55] LABS: BASO # 0.1 10^3/uL (0.0-0.2); BASO % 0.5 % (0.0-1.0); EOS # 0.3 10^3/uL (0.0-0.5); EOS % 2.5 % (0.0-3.0); HEMATOCRIT 48.1 % (42.0-52.0); HEMOGLOBIN 16.3 g/dl (13.5-17.5); LYMPH # 2.7 10^3/uL (1.5-5.0); LYMPH % 24.8 % (24.0-44.0); MEAN CORPUSCULAR HEMOGLOBIN 31.3 pg (27.0-33.0); MEAN CORPUSCULAR HGB CONC 33.9 g/dl (32.0-36.5); MEAN CORPUSCULAR VOLUME 92.3 fl (80.0-96.0); MONO # 0.7 10^3/uL (0.0-0.8); MONO % 6.5 % (0.0-5.0); NEUTROPHILS # 7.2 10^3/uL (1.5-8.5); NEUTROPHILS % 65.1 % (36.0-66.0); PLATELET COUNT, AUTOMATED 222 10^3/uL (150-450); RED BLOOD COUNT 5.21 10^6/uL (4.30-6.10)
== END ==
LOC: M LAB REF 16:51
PROVIDERS: ATTEND Family Medicine Addiction Medicine
DX: D72.0 Genetic anomalies of leukocytes (principal)

== ENCOUNTER → 2020-05-29 | Outpatient (REF) | payer OTHER, MEDICAID ==
[2020-05-29 12:07] LABS: BASO # 0.1 10^3/uL (0.0-0.2); BASO % 0.6 % (0.0-1.0); EOS # 0.2 10^3/uL (0.0-0.5); EOS % 2.2 % (0.0-3.0); HEMOGLOBIN 15.2 g/dl (13.5-17.5); LYMPH # 2.1 10^3/uL (1.5-5.0); LYMPH % 25.3 % (24.0-44.0); MEAN CORPUSCULAR HEMOGLOBIN 30.1 pg (27.0-33.0); MEAN CORPUSCULAR HGB CONC 32.3 g/dl (32.0-36.5); MEAN CORPUSCULAR VOLUME 93.1 fl (80.0-96.0); MONO # 0.9 10^3/uL (0.0-0.8); MONO % 10.6 % (0.0-5.0); NEUTROPHILS % 60.2 % (36.0-66.0); PLATELET COUNT, AUTOMATED 184 10^3/uL (150-450); RED BLOOD COUNT 5.05 10^6/uL (4.30-6.10); WHITE BLOOD COUNT 8.3 10^3/uL (4.0-10.0)
[2020-05-29 12:55] LABS: ALBUMIN 3.6 GM/DL (3.2-5.2); ALT/SGPT 126 U/L (12-78); BILIRUBIN,TOTAL 0.4 MG/DL (0.2-1.0); BLOOD UREA NITROGEN 10 MG/DL (7-18); CALCIUM LEVEL 9.1 MG/DL (8.5-10.1); CARBON DIOXIDE LEVEL 30 MEQ/L (21-32); CHLORIDE LEVEL 107 MEQ/L (98-107); CHOLESTEROL LEVEL 168 MG/DL (<200); CREATININE FOR GFR 0.88 MG/DL (0.70-1.30); GLOMERULAR FILTRATION RATE > 60.0 (>60); GLUCOSE, FASTING 94 MG/DL (70-100); HDL CHOLESTEROL 35 MG/DL (>40); LDL CHOLESTEROL 98 MG/DL (<100); NON-HDL-C 133 MG/DL; POTASSIUM SERUM 4.5 MEQ/L (3.5-5.1); SODIUM LEVEL 141 MEQ/L (136-145); TOTAL PROTEIN 6.7 GM/DL (6.4-8.2); TRIGLYCERIDES LEVEL 173 MG/DL (<150)
== END ==
LOC: M LAB REF 11:34
PROVIDERS: ATTEND Nurse Practitioner Family
DX: E78.5 Hyperlipidemia, unspecified (principal)

== ENCOUNTER → 2020-07-02 | Outpatient (CLI) | payer OTHER, MEDICAID ==
--- NOTE | 2020-07-02 12:01 | REP ---
INDICATION: PAIN IN R KNEE. COMPARISON: Comparison right knee radiographs are from January 10, 2019.. TECHNIQUE: AP lateral and sunrise views are presented as requested. Three-view study. FINDINGS: Three views of the right knee demonstrate advanced 3 compartment osteoarthritis of the right knee radiographically unchanged from the January 10, 2019 prior study. There is fullness in the region of the suprapatellar bursa suggesting joint effusion. There is accessory ossicle formation in the distal patellar tendon just above its distal attachment. Small soft tissue calcification is seen in the subcutaneous fat anterior to the patella and medially. This is unchanged.. No fracture or subluxation is seen. No opaque foreign body noted. IMPRESSION: Moderate 3 compartment osteoarthritis of the right knee radiographically unchanged from January 10, 2019. Possible joint effusion.. <Electronically signed by Eyal Rojas > 07/02/20 4000
== END ==
LOC: M RAD 10:47
PROVIDERS: ATTEND Family Medicine Addiction Medicine
DX: M25.561 Pain in right knee (principal); M17.11 Unilateral primary osteoarthritis, right knee

== ENCOUNTER → 2022-05-14 | Outpatient (CLI) | payer OTHER | LOC: M RAD 08:03 | PROVIDERS: ATTEND Physician Assistant Surgical | DX: M17.11 Unilateral primary osteoarthritis, right knee (principal); S83.281D Other tear of lateral meniscus, current injury, right knee, subsequent encounter; S83.511D Sprain of anterior cruciate ligament of right knee, subsequent encounter; M71.21 Synovial cyst of popliteal space [Baker], right knee ==

== ENCOUNTER → 2022-09-22 | Outpatient (REF) | payer OTHER ==
[2022-09-22 15:02] LABS: TESTOSTERONE 331 NG/DL (241-827)
[2022-09-22 15:23] LABS: ALBUMIN 3.9 G/DL (3.2-5.2); ALKALINE PHOSPHATASE 71 U/L (46-116); ALT/SGPT 53 U/L (7.0-40); AST/SGOT 27 U/L (<34); BILIRUBIN,TOTAL 0.3 MG/DL (0.3-1.2); BLOOD UREA NITROGEN 12 MG/DL (9-23); CALCIUM LEVEL 9.3 MG/DL (8.5-10.1); CARBON DIOXIDE LEVEL 28 MMOL/L (20-31); CHLORIDE LEVEL 108 MMOL/L (98-107); CHOLESTEROL LEVEL 173 MG/DL (<200); CHOLESTEROL RISK RATIO 4.44 (<5); GLUCOSE, FASTING 98 MG/DL (60-100); HDL CHOLESTEROL 38.9 MG/DL (>40); LDL CHOLESTEROL 102.9 MG/DL (<100); NON-HDL-C 134 MG/DL; POTASSIUM SERUM 4.5 MMOL/L (3.5-5.1); SODIUM LEVEL 143 MMOL/L (136-145); TOTAL PROTEIN 6.7 G/DL (5.7-8.2); TRIGLYCERIDES LEVEL 156 MG/DL (<150)
[2022-09-22 19:51] LABS: CREATININE FOR GFR 0.78 MG/DL (0.70-1.30); GLOMERULAR FILTRATION RATE > 60.0 (>60)
== END ==
LOC: M LAB REF 13:21
PROVIDERS: ATTEND Family Medicine Addiction Medicine
DX: N46.9 Male infertility, unspecified (principal); E66.01 Morbid (severe) obesity due to excess calories

== ENCOUNTER → 2024-05-17 | Outpatient (REF) | LOC: M PLAIMG 11:59 | PROVIDERS: ATTEND Internal Medicine | DX: M25.562 Pain in left knee (principal) ==

== ENCOUNTER → 2025-03-19 | Outpatient (REF) | payer OTHER ==
[2025-03-19 14:34] LABS: ALT/SGPT 41 U/L (7.0-40); AST/SGOT 26 U/L (<34); CALCIUM LEVEL 9.4 MG/DL (8.5-10.1); CARBON DIOXIDE LEVEL 28 MMOL/L (20-31); CHLORIDE LEVEL 107 MMOL/L (98-107); CHOLESTEROL LEVEL 174 MG/DL (<200); CHOLESTEROL RISK RATIO 5.04 (<5); CREATININE FOR GFR 0.86 MG/DL (0.70-1.30); GLOMERULAR FILTRATION RATE > 90.0 (>60); LDL CHOLESTEROL 115.9 MG/DL (<100); NON-HDL-C 139.5 MG/DL; POTASSIUM SERUM 4.6 MMOL/L (3.5-5.1); SODIUM LEVEL 143 MMOL/L (136-145); TRIGLYCERIDES LEVEL 118 MG/DL (<150)
[2025-03-19 14:36] LABS: FREE T4 1.00 NG/DL (0.89-1.76)
[2025-03-19 15:27] LABS: ESTIMATED AVERAGE GLUCOSE 103.0 MG/DL (60-110)
== END ==
LOC: M LAB REF 13:48
PROVIDERS: ATTEND Family Medicine Addiction Medicine
DX: E66.01 Morbid (severe) obesity due to excess calories (principal)